=== PATIENT | female | born 1945 | race Caucasian/White ===

== ENCOUNTER 2016-09-22 19:20 | Inpatient (IN) | payer MEDICARE, BC ==
[2016-09-22] MEDS ORDERED: Albuterol/Ipratropium 3.0-0.5 MG/3 ML Neb Soln NEB ONE (19:35)
[2016-09-22] MEDS ORDERED: Sodium Chloride 0.9% 10 ML Syringe FLUSH PRN (19:36)
[2016-09-22] MEDS ORDERED: Sodium Chloride 0.9% 2.5 ML Syringe FLUSH PRN (19:36)
[2016-09-22] MEDS ORDERED: Sodium Chloride 0.9% 1,000 ML IV ONE (19:36)
--- NOTE | 2016-09-22 19:41 | EDM.PDOC ---
ED HPI GENERAL MEDICAL PROBLEM - General Chief Complaint: Respiratory Problem Stated Complaint: PT COUGHING UP BLOOD AND WEAK Time Seen by Provider: 09/22/16 19:23 - History of Present Illness INITIAL COMMENTS - FREE TEXT/NARRATIVE: HISTORY AND PHYSICAL: History of present illness: The patient is a complicated 71-year-old female who lives in [place] and is traveling in the area on a summer trip and presents with complaints of coughing bright red blood that started this morning. 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 She has chronic problems as a result of those events since that time and has had aspiration pneumonia multiple times. She is currently on clindamycin continuously for the last one year to attempt to prevent recurrence of pneumonia. She also has a history of A. fib with a pacemaker and currently takes digoxin and Eliquis. She also has COPD and sleep apnea for which she uses C Pap at night and hypothyroidism. She follows with physicians in [place]. The patient states that when she coughs of blood she usually has aspiration pneumonia which is what she is concerned about. She does not feel like she has any tightness in her neck and has no chest pain per se except with a cough. She is not short of breath at rest but with activities she is getting breathless over the last 12-18 hours. She says that she coughs up blood every morning due to her C Pap but it is usually dark in color not bright red. She does feel weak which is generalized and not focal to any one extremity and she had an episode of dizziness/lightheadedness earlier today but did not pass out. She has not had her head and has no head neck or back pain. She has no abdominal complaints no vomiting and no diarrhea. She also feels that she has been dehydrated and she has not been taking much fluid in and feels weak because of that as well. She is not having any blood in her stools but she does have bleeding in her mouth due to the chronic dryness she has since her neck surgery 12 days ago. The patient says that salivary glands were affected after the surgery 12 years ago with the radiation and she has chronically dry oral mucosa which does bleed intermittently. She says that when she coughs and there is blood(different than her usual baseline. Review of systems: As per history of present illness and below otherwise all systems reviewed and negative. Past medical history: As per history of present illness and as reviewed below otherwise noncontributory. Surgical history: As per history of present illness and as reviewed below otherwise noncontributory. Social history: No reported history of drug or alcohol abuse. Family history: As per history of present illness and as reviewed below otherwise noncontributory. Physical exam: Gen.: Well-developed thin female who is nontoxic and speaks very softly and vital signs have been noted by me. HEENT: Atraumatic, normocephalic, pupils reactive, negative for scleral icterus , conjunctiva are slightly pale, mucous membranes very dry which is the patient' s baseline per her testimony, throat clear of exudates but there is scant bright red blood seen on the tongue, there is chronic changes on the left side of her neck due to surgery and radiation, neck supple, nontender, trachea midline. There is no stridor appreciated on auscultation and in speaking with the patient voices not muffled Lungs: Clear to auscultation with scattered coarse breath sounds bilaterally but no wheezing and no worker breathing,, breath sounds equal bilaterally, chest nontender. Pacemaker is appreciated at the right upper chest wall area Heart: S1S2, regular, negative for clicks, rubs, or JVD. Abdomen: Soft, nondistended, bowel sounds are hypoactive and there is some mild tenderness in the left upper abdomen area without rebound or guarding Negative for masses or hepatosplenomegaly. Negative for costovertebral tenderness. Pelvis: Stable nontender. Genitourinary: Deferred. Rectal: Deferred. Extremities: Atraumatic, negative for cords or calf pain. Neurovascular unremarkable. No pedal edema Neuro: Awake, alert, oriented. Cranial nerves II through XII unremarkable. Cerebellum unremarkable. Motor and sensory unremarkable throughout. Exam nonfocal. Skin: No rashes or lesions are seen turgor is slightly diminished and the patient has overall pallor appearance Diagnostics: EKG CBC CMP INR lactic acid digoxin level blood cultures 2 troponin one view chest x-ray CT scan of the neck chest abdomen and pelvis Type and screen Therapeutics: IV humidified oxygen monitor IV fluids duo neb 2200: Case was discussed with our hospitalist Dr. Skinner who agrees with admission for bilateral pneumonia and agrees with Zosyn for antibiotics. Patient has not coughed up any blood here in the ED and has been stable vital lomeli. We will plan to admit here. Patient and are comfortable with this care plan. Critical care time excluding procedures: 31min Impression: Bilateral pneumonia with Hemoptysis with history of neck cancer in remission, chronic aspiration pneumonia, A. fib with Eliquis use Definitive disposition and diagnosis as appropriate pending reevaluation and review of above. - Related Data Allergies Allergy/AdvReac Type Severity Reaction Status Date / Time codeine Allergy Vomiting Verified 09/22/16 19:36 Sulfa (Sulfonamide Allergy Hives Verified 09/22/16 19:36 Antibiotics) Home Meds: Home Meds Apixaban [Eliquis] 5 mg PO BID 09/22/16 [History] C-Pap 09/22/16 [History] Clindamycin HCl 150 mg PO DAILY 09/22/16 [History] Digoxin [Digitek] 125 mcg PO DAILY 09/22/16 [History] Esomeprazole [NexIUM] 40 mg PO BEDTIME 09/22/16 [History] Fexofenadine [Linda] 180 mg PO ASDIRECTED PRN 09/22/16 [History] Flecainide Acetate 50 mg PO BID 09/22/16 [History] Fludrocortisone [Florinef] 0.1 mg PO BIDMEALS 09/22/16 [History] Levalbuterol HCl 0.63 mg IH ASDIRECTED PRN 09/22/16 [History] Levothyroxine 137 mcg PO ACBREAKFAST 09/22/16 [History] Meclizine [Antivert] 25 mg PO ASDIRECTED PRN 09/22/16 [History] Midodrine 2.5 mg PO BID 09/22/16 [History] Nystatin 15 gm TP ASDIRECTED PRN 09/22/16 [History] Sertraline [Zoloft] 50 mg PO DAILY 09/22/16 [History] Solifenacin Succinate [Vesicare] 10 mg PO DAILY 09/22/16 [History] Tiotropium [Spiriva] 1 puff INH DAILY 09/22/16 [History] ED ROS GENERAL - Review of Systems Review Of Systems: ROS reveals no pertinent complaints other than HPI. ED EXAM, GENERAL - Physical Exam Exam: See Below (See dictation) Course - Vital Signs Last Recorded V/S: Last Vital Signs Temp 36.9 C 09/22/16 22:02 Pulse 72 09/22/16 22:02 Resp 14 09/22/16 22:02 BP 178/89 H 09/22/16 22:02 Pulse Ox 97 09/22/16 22:02 - Orders/Labs/Meds Orders: Active Orders 24 hr Category Date Time Status Patient Status [ADT] Stat ADT 09/22/16 22:10 Ordered Cardiac Monitoring [RC] . DIRECTED Care 09/22/16 19:35 Active Communication Order [RC] STAT Care 09/22/16 19:35 Active EKG Documentation Completion [RC] STAT Care 09/22/16 19:35 Active Oxygen Therapy, ED [RC] ASDIRECTED Care 09/22/16 19:35 Active Pulse Oximetry [RC] ASDIRECTED Care 09/22/16 19:35 Active RT Aerosol Therapy [RC] ASDIRECTED Care 09/22/16 19:36 Active Abdomen Pelvis w Cont [CT] Stat Exams 09/22/16 19:41 Taken Chest 1V Frontal [CR] Stat Exams 09/22/16 19:36 Taken Chest w Cont [CT] Stat Exams 09/22/16 19:36 Taken Soft Tissue Neck w Cont [CT] Stat Exams 09/22/16 19:38 Taken CULTURE BLOOD [BC] Stat Lab 09/22/16 19:49 Received CULTURE BLOOD [BC] Stat Lab 09/22/16 20:10 Received Piperacillin/Tazobactam [Piperacil-Tazobact] 3.375 gm Med 09/22/16 22:01 Active Sodium Chloride 0.9% [Normal Saline] 50 ml IV ONETIME Sodium Chloride 0.9% [Saline Flush] Med 09/22/16 19:36 Active 10 ml FLUSH ASDIRECTED PRN Sodium Chloride 0.9% [Saline Flush] Med 09/22/16 19:36 Active 2.5 ml FLUSH ASDIRECTED PRN Blood Culture x2 Reflex Set [OM.PC] Stat Oth 09/22/16 19:36 Ordered Saline Lock Insert [OM.PC] Stat Oth 09/22/16 19:35 Ordered Medication Orders Piperacillin Sod/Tazobactam (Sod 3.375 gm/ Sodium Chloride) 50 mls @ 100 mls/ hr IV ONETIME ONE Stop: 09/22/16 22:30 Sodium Chloride (Saline Flush) 10 ml FLUSH ASDIRECTED PRN PRN Reason: Keep Vein Open Sodium Chloride (Saline Flush) 2.5 ml FLUSH ASDIRECTED PRN PRN Reason: Keep Vein Open Labs: Laboratory Tests 09/22/16 09/22/16 09/22/16 Range/Units 19:49 19:49 19:49 WBC 11.07 H (4.0-11.0) K/uL RBC 3.85 L (4.30-5.90) M/uL Hgb 9.1 L (12.0-16.0) g/dL Hct 28.9 L (36.0-46.0) % MCV 75.1 L (80.0-98.0) fL MCH 23.6 L (27.0-32.0) pg MCHC 31.5 (31.0-37.0) g/dL RDW Std Deviation 50.8 (28.0-62.0) fl RDW Coeff of Jacobo 19 H (11.0-15.0) % Plt Count 212 (150-400) K/uL MPV 8.60 (7.40-12.00) fL Neut % (Auto) 77.6 (48.0-80.0) % Lymph % (Auto) 15.8 L (16.0-40.0) % Burnet % (Auto) 5.8 (0.0-15.0) % Eos % (Auto) 0.5 (0.0-7.0) % Baso % (Auto) 0.3 (0.0-1.5) % Neut # (Auto) 8.6 H (1.4-5.7) K/uL Lymph # (Auto) 1.8 (0.6-2.4) K/uL Burnet # (Auto) 0.6 (0.0-0.8) K/uL Eos # (Auto) 0.1 (0.0-0.7) K/uL Baso # (Auto) 0.0 (0.0-0.1) K/uL Nucleated RBC % 0.0 /100WBC Nucleated RBCs # 0 K/uL INR 1.10 (0.86-1.11) Lactate 1.3 (0.20-2.00) mmol/L Sodium (136-146) mmol/L Potassium (3.5-5.1) mmol/L Chloride (98-110) mmol/L Carbon Dioxide (21-31) mmol/L BUN (6.0-23.0) mg/dL Creatinine (0.6-1.5) mg/dL Est Cr Clr Drug Dosing mL/min Estimated GFR (MDRD) ml/min Glucose (60-110) mg/dL Calcium (8.8-10.8) mg/dL Total Bilirubin (0.1-1.5) mg/dL AST (5-40) IU/L ALT (8-54) IU/L Alkaline Phosphatase (40-150) Troponin I (0.0-0.29) NG/ML Total Protein (6.0-8.0) g/dL Albumin (3.4-4.8) g/dL Globulin (2.0-3.5) g/dL Albumin/Globulin Ratio (1.3-2.8) Digoxin (0.8-2.0) ng/mL Blood Type Antibody Screen 09/22/16 09/22/16 09/22/16 Range/Units 19:49 19:49 19:49 WBC (4.0-11.0) K/uL RBC (4.30-5.90) M/uL Hgb (12.0-16.0) g/dL Hct (36.0-46.0) % MCV (80.0-98.0) fL MCH (27.0-32.0) pg MCHC (31.0-37.0) g/dL RDW Std Deviation (28.0-62.0) fl RDW Coeff of Jacobo (11.0-15.0) % Plt Count (150-400) K/uL MPV (7.40-12.00) fL Neut % (Auto) (48.0-80.0) % Lymph % (Auto) (16.0-40.0) % Burnet % (Auto) (0.0-15.0) % Eos % (Auto) (0.0-7.0) % Baso % (Auto) (0.0-1.5) % Neut # (Auto) (1.4-5.7) K/uL Lymph # (Auto) (0.6-2.4) K/uL Burnet # (Auto) (0.0-0.8) K/uL Eos # (Auto) (0.0-0.7) K/uL Baso # (Auto) (0.0-0.1) K/uL Nucleated RBC % /100WBC Nucleated RBCs # K/uL INR (0.86-1.11) Lactate (0.20-2.00) mmol/L Sodium 141 (136-146) mmol/L Potassium 4.0 (3.5-5.1) mmol/L Chloride 105 (98-110) mmol/L Carbon Dioxide 24 (21-31) mmol/L BUN 16 (6.0-23.0) mg/dL Creatinine 0.9 (0.6-1.5) mg/dL Est Cr Clr Drug Dosing 68.08 mL/min Estimated GFR (MDRD) > 60.0 ml/min Glucose 82 (60-110) mg/dL Calcium 9.2 (8.8-10.8) mg/dL Total Bilirubin 1.2 (0.1-1.5) mg/dL AST 12 (5-40) IU/L ALT 10 (8-54) IU/L Alkaline Phosphatase 54 (40-150) Troponin I < 0.10 (0.0-0.29) NG/ML Total Protein 6.6 (6.0-8.0) g/dL Albumin 3.6 (3.4-4.8) g/dL Globulin 3.0 (2.0-3.5) g/dL Albumin/Globulin Ratio 1.2 L (1.3-2.8) Digoxin 0.94 (0.8-2.0) ng/mL Blood Type A POSITIVE Antibody Screen NEGATIVE Meds: Medications Generic Name Dose Route Start Last Admin Trade Name Freq PRN Reason Stop Dose Admin Piperacillin Sod/Tazobactam 50 mls @ 100 mls/hr 09/22/16 22:01 Sod 3.375 gm/ Sodium Chloride IV 09/22/16 22:30 ONETIME ONE Sodium Chloride 10 ml 09/22/16 19:36 Saline Flush FLUSH ASDIRECTED PRN Keep Vein Open Sodium Chloride 2.5 ml 09/22/16 19:36 Saline Flush FLUSH ASDIRECTED PRN Keep Vein Open Discontinued Medications Generic Name Dose Route Start Last Admin Trade Name Freq PRN Reason Stop Dose Admin Albuterol/Ipratropium 3 ml 09/22/16 19:35 09/22/16 19:51 Duoneb 3.0-0.5 Mg/3 Ml NEB 09/22/16 19:36 3 ml ONETIME ONE Administration Sodium Chloride 1,000 mls @ 999 mls/hr 09/22/16 19:36 09/22/16 20:20 Normal Saline IV 09/22/16 20:36 999 mls/hr STAT ONE Administration Iopamidol 100 ml 09/22/16 19:51 09/22/16 20:00 Isovue Multipack-370 (76%) IVPUSH 09/22/16 19:52 100 ml ONETIME STA Administration Departure - Departure Time of Disposition: 22:12 Disposition: Admitted As Inpatient 68 Condition: Good Clinical Impression: Hemoptysis Pneumonia Qualifiers: Pneumonia type: due to unspecified organism Laterality: bilateral Lung location : unspecified part of lung Qualified Code(s): J18.9 - Pneumonia, unspecified organism - Discharge Information Forms: ED Department Discharge - My Orders Last 24 Hours: My Active Orders 09/22/16 19:35 Cardiac Monitoring [RC] . DIRECTED Communication Order [RC] STAT EKG Documentation Completion [RC] STAT Oxygen Therapy, ED [RC] ASDIRECTED Pulse Oximetry [RC] ASDIRECTED Saline Lock Insert [OM.PC] Stat 09/22/16 19:36 RT Aerosol Therapy [RC] ASDIRECTED Chest 1V Frontal [CR] Stat Chest w Cont [CT] Stat Sodium Chloride 0.9% [Saline Flush] 10 ml FLUSH ASDIRECTED PRN Sodium Chloride 0.9% [Saline Flush] 2.5 ml FLUSH ASDIRECTED PRN Blood Culture x2 Reflex Set [OM.PC] Stat 09/22/16 19:38 Soft Tissue Neck w Cont [CT] Stat 09/22/16 19:41 Abdomen Pelvis w Cont [CT] Stat 09/22/16 19:49 CULTURE BLOOD [BC] Stat 09/22/16 20:10 CULTURE BLOOD [BC] Stat 09/22/16 22:01 Piperacillin/Tazobactam [Piperacil-Tazobact] 3.375 gm Sodium Chloride 0.9% [ Normal Saline] 50 ml IV ONETIME 09/22/16 22:10 Patient Status [ADT] Stat - Assessment/Plan Last 24 Hours: My Active Orders 09/22/16 19:35 Cardiac Monitoring [RC] . DIRECTED Communication Order [RC] STAT EKG Documentation Completion [RC] STAT Oxygen Therapy, ED [RC] ASDIRECTED Pulse Oximetry [RC] ASDIRECTED Saline Lock Insert [OM.PC] Stat 09/22/16 19:36 RT Aerosol Therapy [RC] ASDIRECTED Chest 1V Frontal [CR] Stat Chest w Cont [CT] Stat Sodium Chloride 0.9% [Saline Flush] 10 ml FLUSH ASDIRECTED PRN Sodium Chloride 0.9% [Saline Flush] 2.5 ml FLUSH ASDIRECTED PRN Blood Culture x2 Reflex Set [OM.PC] Stat 09/22/16 19:38 Soft Tissue Neck w Cont [CT] Stat 09/22/16 19:41 Abdomen Pelvis w Cont [CT] Stat 09/22/16 19:49 CULTURE BLOOD [BC] Stat 09/22/16 20:10 CULTURE BLOOD [BC] Stat 09/22/16 22:01 Piperacillin/Tazobactam [Piperacil-Tazobact] 3.375 gm Sodium Chloride 0.9% [ Normal Saline] 50 ml IV ONETIME 09/22/16 22:10 Patient Status [ADT] Stat
[2016-09-22] MEDS ORDERED: Iopamidol 755 MG/ML 500 ML Multipack Bottle IVPUSH STA (19:51)
[2016-09-22 20:29] LABS: CHLORIDE,CL 105 mmol/L (98-110); SODIUM,NA 141 mmol/L (136-146)
[2016-09-22] MEDS ORDERED: Piperacillin/Tazobactam 3.375 GM in Sodium Chloride 0.9% 50 ML IV ONE (22:01)
[2016-09-22] MEDS ORDERED: Azithromycin 500 MG in Sodium Chloride 0.9% 250 ML IV ONE (23:44)
[2016-09-22] MEDS ORDERED: Ondansetron 4 MG/2 ML SDV IVPUSH PRN (23:48)
[2016-09-23] MEDS: Flecainide 100 MG Tab PO SCH ×4 (01:46→20:31)
[2016-09-23] MEDS: Piperacillin/Tazobactam 3.375 GM in Sodium Chloride 0.9% 50 ML IV SCH ×4 (03:25→21:45)
[2016-09-23] MEDS ORDERED: Nystatin Crm 30 GM Tube TOP PRN (05:52)
[2016-09-23] MEDS ORDERED: Levalbuterol HCl 0.63 MG/3 ML Neb INH PRN (05:52)
[2016-09-23] MEDS ORDERED: Meclizine 25 MG Tab PO PRN (05:52)
[2016-09-23 05:53] LABS: CHLORIDE,CL 108 mmol/L (98-110); SODIUM,NA 142 mmol/L (136-146)
--- NOTE | 2016-09-23 08:40 | PCM.HP ---
H&P History of Present Illness - General Date of Service: 09/23/16 Admit Problem/Dx: Admission Diagnosis/Problem Admission Diagnosis/Problem Aspiration Pneumonia Source of Information: Patient History Limitations: Reports: No Limitations - History of Present Illness Initial Comments - Free Text/Narative: This is a 71 year old female with a past medical history of left sided neck cancer that was treated with radiation and dissection 12 years ago, A-fib on chronic anticoagulation, Eliquis, COPD, recurrent aspiration pneumonia due to radiation treatments, pacemaker, Tomy reflex syndrome, JONNA, and hypothyroidism. She presents to the ED for an episode of coughing up blood that was red mixed in with her sputum. She reports 2 days ago, feeling weak and clumsy and just is feeling dehydrated. She reported having a fever of 101.3 at home, with some chills. She denies chest pain, palpitations or SOB. She denied abdominal pain, urinary symptoms or diarrhea. She does suffer from some constipation chronically. Her and her are from [place] and they have been traveling in a RV for the last month. Due to dysphagia and recurrent aspiration pneumonia, her roll coating machine operator placed her on Clindamycin approximately 1 year ago to help prevent aspiration pneumonia. She has been told to limit meat and bread intake, which she has a hard time swallowing. Her appetite is poor and typically doesn't eat much due to dysphagia. She at this time is aiming at quality of life and doesn't want to restrict diet at this time and knows eventually she will be back to PEG tube feedings. In the ED, slight leukocytosis noted, 11,070, hgb 9.[address] of the chest revealed R upper, mid and lower lobe and L lower lobe opacities, question aspiration. Neck and abdominal CT negative for acute abnormalities. She was treated with Zosyn and 1 L bolus. She will be admitted for aspiration pneumonia. Improves with: Reports: None Worsens with: Reports: None Associated Symptoms: Reports: No Other Symptoms - Related Data Allergies/Adverse Reactions: Allergies Allergy/AdvReac Type Severity Reaction Status Date / Time codeine Allergy Vomiting Verified 09/22/16 19:36 Sulfa (Sulfonamide Allergy Hives Verified 09/22/16 19:36 Antibiotics) Home Medications: Home Meds Apixaban [Eliquis] 5 mg PO BID 09/22/16 [History] Clindamycin HCl 150 mg PO DAILY 09/22/16 [History] Digoxin [Digitek] 125 mcg PO DAILY 09/22/16 [History] Esomeprazole [NexIUM] 40 mg PO ACBREAKFAST 09/22/16 [History] Fexofenadine [Linda] 180 mg PO ASDIRECTED PRN 09/22/16 [History] Flecainide Acetate 50 mg PO BID 09/22/16 [History] Fludrocortisone [Florinef] 0.1 mg PO BIDMEALS 09/22/16 [History] Levalbuterol HCl 0.63 mg IH ASDIRECTED PRN 09/22/16 [History] Levothyroxine 137 mcg PO ACBREAKFAST 09/22/16 [History] Meclizine [Antivert] 25 mg PO ASDIRECTED PRN 09/22/16 [History] Midodrine 2.5 mg PO BID 09/22/16 [History] Nystatin 15 gm TP ASDIRECTED PRN 09/22/16 [History] Sertraline [Zoloft] 50 mg PO DAILY 09/22/16 [History] Solifenacin Succinate [Vesicare] 10 mg PO DAILY 09/22/16 [History] Tiotropium [Spiriva] 18 mcg INH DAILY 09/22/16 [History] Past Medical History HEENT History: Reports: Other (See Below) (Left side neck cancer with radiation and dissection 12 years ago) Cardiovascular History: Reports: Afib, Pacemaker, Other (See Below) (Tomy reflex syndrome). Denies: Hypertension Respiratory History: Reports: COPD, Pneumonia, Recurrent (Reccurent aspiration pneumonia), Other (See Below) Endocrine/Metabolic History: Reports: Hypothyroidism. Denies: Diabetes, Type II - Infectious Disease History Infectious Disease History: Reports: Other (See Below) Other Infectious Disease History: staph infections - Past Surgical History Cardiovascular Surgical History: Reports: None Social & Family History - Family History Family Medical History: Noncontributory - Tobacco Use Smoking Status *Q: Former Smoker Used Tobacco, but Quit: Yes Month Tobacco Last Used: 50 years ago Second Hand Smoke Exposure: No - Caffeine Use Caffeine Use: Reports: Coffee - Alcohol Use Alcohol Use Frequency: Socially - Recreational Drug Use Recreational Drug Use: No - Living Situation & Occupation Living situation: Reports: Occupation: Retired H&P Review of Systems - Review of Systems: Review Of Systems: See Below General: Reports: Malaise, Fatigue, Decreased Appetite. Denies: Fever, Chills HEENT: Reports: Dysphasia, Headaches. Denies: Sore Throat Pulmonary: Reports: Cough, Hemoptysis. Denies: Shortness of Breath, Wheezing, Pleuritic Chest Pain Cardiovascular: Reports: No Symptoms, Other (wears compression stockings ). Denies: Chest Pain, Palpitations, Dyspnea on Exertion Gastrointestinal: Reports: Decreased Appetite, Difficulty Swallowing, Nausea, Other (Patient states since the neck cancer, she has had problems swallowing and has had her esophagus stretched 3 times in the past. She states she has been told that she should thicken her liquids, but patient states she does not follow the recommendations. ). Denies: Black Stool, Bloody Stool Genitourinary: Reports: No Symptoms. Denies: Dysuria, Frequency, Burning, Pain , Urgency, Hematuria Musculoskeletal: Reports: No Symptoms Skin: Denies: Bruising, Change in Color Psychiatric: Reports: No Symptoms Neurological: Reports: Headache, Syncope (patient states 2 nights ago she had a " passing out" episode. She states this is due to her tomy reflex syndrome ). Denies: Confusion, Dizziness, Seizure, Difficulty Walking, Weakness Hematologic/Lymphatic: Reports: No Symptoms. Denies: Anemia, Easy Bleeding, Swollen Glands Exam - Exam Exam: See Below - Vital Signs Vital Signs: Last Vital Signs Temp 99.5 F 09/23/16 08:00 Pulse 74 09/23/16 08:00 Resp 20 09/23/16 08:00 BP 146/76 H 09/23/16 08:00 Pulse Ox 95 09/23/16 08:00 Weight: 75.931 kg - Exam General: Alert, Oriented, Cooperative HEENT: Hearing Intact, Mucosa Moist & [place], Pupils Equal, Pupils Reactive Neck: Supple, Trachea Midline Lungs: Normal Respiratory Effort, Rhonchi, Other (rhonchi in right upper, middle , & lower and rhonchi in left lower lobe) Cardiovascular: Regular Rate, Regular Rhythm, Normal S1, Normal S2 GI/Abdominal Exam: Normal Bowel Sounds, Soft, Non-Tender, No Organomegaly, No Distention, Pelvis Stable (Female) Exam: Deferred Rectal (Female) Exam: Deferred Back Exam: Normal Inspection, Full Range of Motion Extremities: Normal Inspection, Normal Range of Motion, Non-Tender, No Pedal Edema, Normal Capillary Refill Peripheral Pulses: 2+: Dorsalis Pedis (L), Dorsalis Pedis (R) Skin: Warm, Dry, Intact Neurological: Normal Speech, Normal Tone Neuro Extensive - Mental Status: Alert, Oriented x3, Normal Mood/Affect, Normal Cognition, Memory Intact Psychiatric: Alert, Normal Affect, Normal Mood - Patient Data Lab Results Last 24 hrs: Laboratory Results - last 24 hr 09/23/16 09/23/16 Range/Units 04:48 04:48 WBC 10.28 (4.0-11.0) K/uL RBC 3.57 L (4.30-5.90) M/uL Hgb 8.4 L (12.0-16.0) g/dL Hct 27.1 L (36.0-46.0) % MCV 75.9 L (80.0-98.0) fL MCH 23.5 L (27.0-32.0) pg MCHC 31.0 (31.0-37.0) g/dL RDW Std Deviation 51.1 (28.0-62.0) fl RDW Coeff of Jacobo 19 H (11.0-15.0) % Plt Count 219 (150-400) K/uL MPV 9.50 (7.40-12.00) fL Neut % (Auto) 82.6 H (48.0-80.0) % Lymph % (Auto) 10.6 L (16.0-40.0) % [place] % (Auto) 5.8 (0.0-15.0) % Eos % (Auto) 0.6 (0.0-7.0) % Baso % (Auto) 0.4 (0.0-1.5) % Neut # (Auto) 8.5 H (1.4-5.7) K/uL Lymph # (Auto) 1.1 (0.6-2.4) K/uL [place] # (Auto) 0.6 (0.0-0.8) K/uL Eos # (Auto) 0.1 (0.0-0.7) K/uL Baso # (Auto) 0.0 (0.0-0.1) K/uL Nucleated RBC % 0.0 /100WBC Nucleated RBCs # 0 K/uL Sodium 142 (136-146) mmol/L Potassium 4.2 (3.5-5.1) mmol/L Chloride 108 (98-110) mmol/L Carbon Dioxide 27 (21-31) mmol/L BUN 14 (6.0-23.0) mg/dL Creatinine 0.8 (0.6-1.5) mg/dL Est Cr Clr Drug Dosing 76.70 mL/min Estimated GFR (MDRD) > 60.0 ml/min Glucose 85 (60-110) mg/dL Calcium 8.3 L (8.8-10.8) mg/dL Result Diagrams: 09/23/16 04:48 09/23/16 04:48 *Q Meaningful Use (ADM) - VTE *Q VTE Criteria *Q: - Stroke *Q Stroke Criteria *Q: - AMI *Q AMI Criteria *Q: - Problem List (1) Aspiration pneumonia SNOMED Code(s): 547994169 ICD Code: J69.0 - PNEUMONITIS DUE TO INHALATION OF FOOD AND VOMIT Status: Acute Current Visit: Yes Qualifiers: Laterality: bilateral (2) Hemoptysis SNOMED Code(s): 78849024 ICD Code: R04.2 - HEMOPTYSIS Status: Acute Current Visit: Yes (3) Afib SNOMED Code(s): 32587247 ICD Code: I48.91 - UNSPECIFIED ATRIAL FIBRILLATION Status: Chronic Current Visit: Yes (4) Anemia SNOMED Code(s): 895665129 ICD Code: D64.9 - ANEMIA, UNSPECIFIED Status: Chronic Current Visit: Yes Qualifiers: Anemia type: iron deficiency Iron deficiency anemia type: inadequate dietary iron intake Qualified Code(s): D50.8 - Other iron deficiency anemias (5) Dysphagia SNOMED Code(s): 95472933, 768853531 ICD Code: R13.10 - DYSPHAGIA, UNSPECIFIED Status: Chronic Current Visit: Yes Qualifiers: Dysphagia type: unspecified Qualified Code(s): R13.10 - Dysphagia, unspecified (6) Malnutrition SNOMED Code(s): 5279296 ICD Code: E46 - UNSPECIFIED PROTEIN-CALORIE MALNUTRITION Status: Chronic Current Visit: Yes (7) JONNA (obstructive sleep apnea) SNOMED Code(s): 55089245 ICD Code: G47.33 - OBSTRUCTIVE SLEEP APNEA (ADULT) (PEDIATRIC) Status: Chronic Current Visit: Yes (8) COPD (chronic obstructive pulmonary disease) SNOMED Code(s): 50481008 ICD Code: J44.9 - CHRONIC OBSTRUCTIVE PULMONARY DISEASE, UNSPECIFIED Status : Chronic Current Visit: Yes Qualifiers: COPD type: chronic bronchitis (9) Pacemaker SNOMED Code(s): 560763909, 812823437 ICD Code: Z95.0 - PRESENCE OF CARDIAC PACEMAKER Status: Chronic Current Visit: Yes (10) Hypothyroid SNOMED Code(s): 85888389 ICD Code: E03.9 - HYPOTHYROIDISM, UNSPECIFIED Status: Chronic Current Visit: Yes (11) History of head or neck cancer SNOMED Code(s): 548769011 ICD Code: Z85.89 - PERSONAL HISTORY OF MALIGNANT NEOPLASM OF ORGANS AND SYSTEMS Status: Chronic Current Visit: Yes (12) Hx of head and neck radiation SNOMED Code(s): 852864502 ICD Code: Z92.3 - PERSONAL HISTORY OF IRRADIATION Status: Chronic Current Visit: Yes Problem List Initiated/Reviewed/Updated: Yes Orders Last 24hrs: Active Orders 24 hr Category Date Time Status Communication Order [RC] DAILY Care 09/23/16 00:30 Active Regular Diet [DIET] Diet 09/23/16 Breakfast Active CULTURE SPUTUM + SMEAR [RM] Routine Lab 09/22/16 23:48 Uncollected Apixaban [Eliquis] Med 09/23/16 09:00 Active 5 mg PO BID Digoxin [Lanoxin] Med 09/23/16 09:00 Active 125 mcg PO DAILY Esomeprazole Med 09/23/16 21:00 Active 40 mg PO BEDTIME Fexofenadine [Linda] Med 09/23/16 05:52 Active 180 mg PO DAILY PRN Flecainide [Tambocor] Med 09/23/16 01:15 Active 50 mg PO BID Fludrocortisone [Florinef] Med 09/23/16 08:00 Active 0.1 mg PO BIDMEALS Levalbuterol HCl [Xopenex] Med 09/23/16 05:52 Active 0.63 mg INH Q4H PRN Levothyroxine Med 09/23/16 07:30 Active 112 mcg PO ACBREAKFAST Levothyroxine Med 09/23/16 07:30 Active 25 mcg PO ACBREAKFAST Meclizine [Antivert] Med 09/23/16 05:52 Active 25 mg PO Q8H PRN Midodrine Med 09/23/16 09:00 Active 2.5 mg PO BID Nystatin [Nystatin Crm] Med 09/23/16 05:52 Active 0 gm TOP BID PRN Ondansetron [Zofran] Med 09/22/16 23:48 Active 4 mg IVPUSH Q4H PRN Piperacillin/Tazobactam [Piperacil-Tazobact] 3.375 gm Med 09/23/16 04:00 Active Sodium Chloride 0.9% [Normal Saline] 50 ml IV Q6H Sertraline [Zoloft] Med 09/23/16 09:00 Active 50 mg PO DAILY Solifenacin Succinate [Vesicare] Med 09/23/16 09:00 Active 10 mg PO DAILY Tiotropium [Spiriva HandiHaler] Med 09/23/16 09:00 Active 1 mcg INH DAILY Medication Orders Apixaban (Eliquis) [address] [facility] Digoxin (Lanoxin) [address] [facility] Fexofenadine HCl (Linda) 180 mg PO DAILY PRN PRN Reason: allergies Flecainide Acetate (Tambocor) [address] [facility] Last Admin: 09/23/16 02:10 Dose: Not Given Fludrocortisone Acetate (Florinef) 0.[address] [facility] Piperacillin Sod/Tazobactam (Sod 3.375 gm/ Sodium Chloride) 50 mls @ 100 mls/ hr IV Q6H [facility] Last Admin: 09/23/16 03:25 Dose: 100 mls/hr Levalbuterol HCl (Xopenex) 0.63 mg INH Q4H PRN PRN Reason: SHORTNESS OF BREATH Levothyroxine Sodium (Levothyroxine) [address] [facility] Levothyroxine Sodium (Levothyroxine) [address] [facility] Meclizine HCl (Antivert) 25 mg PO Q8H PRN PRN Reason: DIZZINESS Midodrine (Midodrine) 2.[address] [facility] Esomeprazole 40 Mg (Pt Own) 40 mg PO BEDTIME [facility] Solifenacin Succinate [Vesicare] 10 MgPt Own [address] [facility] Nystatin (Nystatin Crm) 0 gm TOP BID PRN PRN Reason: rash Ondansetron HCl (Zofran) 4 mg IVPUSH Q4H PRN PRN Reason: Nausea/Vomiting Sertraline HCl (Zoloft) [address] [facility] Sodium Chloride (Saline Flush) 10 ml FLUSH ASDIRECTED PRN PRN Reason: Keep Vein Open Sodium Chloride (Saline Flush) 2.5 ml FLUSH ASDIRECTED PRN PRN Reason: Keep Vein Open Tiotropium [place] (Spiriva Handihaler) [address] [facility] Assessment/Plan Comment:: This 71 year old female admitted with aspiration Pneumonia 1. Aspiration pneumonia: Continue Zosyn. BC pending. Sputum pending. Encourage IS. Will monitor labs in AM. Oxygen prn 2. Anemia: Iron studies show iron deficiency anemia likely secondary to malnutrition. Will monitor hgb in am. Start Iron supplementation today. 3. Afib: Continue Anti-arrhythmics. Rate controlled. Will hold Eliquis at this time due to hemoptysis. Supplemented Magnesium 2 gm IV today. 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 Does appear dehydrated will place on NS 100 for now. Monitor closely. 5. Malnutrition: Supplement meals with Ensure/Boost. Monitor. 6. COPD: Continue Spiriva VTE prophylaxis: SCDs Dispo: 2-3 days
[2016-09-23] MEDS ORDERED: SOLIFENACIN SUCCINATE 10 MG PO SCH (09:00)
[2016-09-23] MEDS ORDERED: TIOTROPIUM 18 MCG INH SCH (09:00)
[2016-09-23] MEDS ORDERED: APIXABAN 5 MG PO SCH (09:00)
[2016-09-23] MEDS: Midodrine 5 MG Tab PO SCH ×2 (09:22→20:32)
[2016-09-23] MEDS: Levothyroxine 25 MCG Tab PO SCH (09:25)
[2016-09-23] MEDS: Levothyroxine 112 MCG Tab PO SCH (09:25)
[2016-09-23] MEDS: Digoxin 125 MCG Tab PO SCH (09:26)
[2016-09-23] MEDS: Fludrocortisone 0.1 MG Tab PO SCH ×2 (09:26→17:17)
[2016-09-23] MEDS: Sertraline 50 MG Tab PO SCH (09:30)
--- NOTE | 2016-09-23 09:42 | CR ---
EXAM DATE: 09/22/16 PATIENT'S AGE: 71 Patient: SEBASTIÁN WEST Facility: [place], [place] Site . Site : 1945 Study: XRay Chest [id number]/25/2017 8:34:46 PM Ordering Physician: Roya Farah Final Report: INDICATION: Cough and a live, history of chronic aspiration. TECHNIQUE: Chest radiograph 1 view COMPARISON: None FINDINGS: Single portable AP upright chest. Study somewhat limited due to motion artifact. Patchy opacification in the bilateral lower lung zones. Upper lung zones clear. Right subclavian pacemaker leads intact. Heart and mediastinal contours within normal limits. Lower cervical spine fusion hardware noted. No pleural effusion or pneumothorax. IMPRESSION: 1. Faint bilateral lower lung zone patchy opacities, consider bilateral lower lobe infiltrates or possible aspiration pneumonitis. Dictated by Juan Francisco Man MD @ 09/22/2016 8:49:10 PM Dictated by: Juan Francisco Man MD @ 09/22/2016 20:49:16 (Electronic Signature) Report S[facility] by Proxy. [facility]
[2016-09-23] MEDS ORDERED: Apixaban 5 MG Tab PO SCH (09:45)
--- NOTE | 2016-09-23 09:47 | CT ---
EXAM DATE: 09/22/16 PATIENT'S AGE: 71 Patient: SEBASTIÁN WEST Facility: [place], [place] Site . Site : 1945 Study: CT Chest [id number]/25/2017 9:26:50 PM Ordering Physician: Roya Farah Final Report: INDICATION: Pain and shortness of breath. History of head and neck cancer 12 years prior. History of aspiration. TECHNIQUE: CT chest was acquired with IV contrast. COMPARISON: None FINDINGS: Cardiovascular structures: Heart size is normal. Thoracic aorta and main pulmonary artery are normal in caliber. Mediastinum and robi: Paratracheal adenopathy measuring up to 12 millimeters Lungs: Bilateral airspace opacities involving the right upper and middle lobes and both lower lobes consistent with pneumonia Pleura and pericardium: No effusions. Chest wall and axilla: No mass or adenopathy. Bones: No significant findings. IMPRESSION: Bilateral airspace opacities involving the right upper and middle lobes and both lower lobes consistent with pneumonia and or aspiration. Findings discussed on 09/22/2016 at 9:[address] Pryor. Dictated by David Henry MD @ 09/22/2016 9:41:40 PM Dictated by: David Henry MD @ 09/22/2016 21:42:12 (Electronic Signature) Report Signed by Proxy. [facility]
--- NOTE | 2016-09-23 09:48 | CT ---
EXAM DATE: 09/22/16 PATIENT'S AGE: 71 Patient: SEBASTIÁN WEST Facility: [place], [place] Site . Site : 1945 Study: CT Abdomen/Pelvis [id number]/25/2017 9:27:23 PM Ordering Physician: Roya Farah Final Report: INDICATION: Pain with palpation. History of aspiration TECHNIQUE: CT abdomen and pelvis acquired with IV contrast. COMPARISON: None FINDINGS: Lower chest: Right middle lobe and bilateral lower lobe airspace opacities consistent with pneumonia and or aspiration. Liver: Unremarkable. Spleen: Unremarkable. Pancreas: Unremarkable. Gallbladder and bile ducts: Status post cholecystectomy. Kidneys: Unremarkable. Adrenal glands: Unremarkable. GI tract: Diffuse colonic fecal retention. Sigmoid diverticulosis Appendix is visualized. Vascular structures: Unremarkable. Lymph nodes: Unremarkable. Miscellaneous: Unremarkable. No free air or significant free fluid. Pelvic Organs: Unremarkable. Bones: Unremarkable for age. IMPRESSION: Right middle and bilateral lower lobe airspace opacities consistent with pneumonia and/ or aspiration. Diffuse colonic fecal retention. Sigmoid diverticulosis. The appendix is not visualized. Findings discussed on 09/22/2016 at 9:[address] Pryor. Dictated by David Henry MD @ 09/22/2016 9:57:36 PM Dictated by: David Henry MD @ 09/22/2016 21:57:43 (Electronic Signature) Report Signed by Proxy. [facility]
--- NOTE | 2016-09-23 09:49 | CT ---
EXAM DATE: 09/22/16 PATIENT'S AGE: 71 Patient: SEBASTIÁN WEST Facility: [place], [place] Site . Site : 1945 Study: CT ST Neck [id number]/25/2017 9:32:28 PM Ordering Physician: Roya Farah Final Report: INDICATION: Shortness of breath, history of neck surgery for head and neck cancer TECHNIQUE: CT soft tissue of the neck was acquired with IV contrast. COMPARISON: None FINDINGS: Skull base: Unremarkable. Pharynx: Unremarkable. Larynx and trachea: Unremarkable. Salivary glands: Unremarkable. Thyroid gland: Unremarkable. Vessels: Unremarkable for age. Bones: Anterior spinal fixation however C6-C7. Misc: 11 millimeter probable lymph node inferior to the digastric muscles Evidence of prior left neck dissection. IMPRESSION: Evidence of prior left-sided neck dissection. Grossly patent airway. Findings discussed on 09/22/2016 at 9:[address] Pryor. Dictated by David Henry MD @ 09/22/2016 9:50:16 PM Dictated by: David Henry MD @ 09/22/2016 21:50:29 (Electronic Signature) Report Signed by Proxy. [facility]
[2016-09-23] MEDS: OMEPRAZOLE 20 MG PO SCH (10:09)
[2016-09-23] MEDS: Sodium Chloride 0.9% 1,000 ML IV SCH ×2 (10:18→21:44)
[2016-09-23] MEDS ORDERED: Magnesium Sulfate/Water 2 GM in Premix Bag 1 BAG IV ONE (13:05)
[2016-09-24] MEDS: Piperacillin/Tazobactam 3.375 GM in Sodium Chloride 0.9% 50 ML IV SCH ×4 (03:02→21:20)
[2016-09-24 05:47] LABS: CHLORIDE,CL 110 mmol/L (98-110); SODIUM,NA 143 mmol/L (136-146)
[2016-09-24] MEDS: Levothyroxine 25 MCG Tab PO SCH (06:36)
[2016-09-24] MEDS: OMEPRAZOLE 20 MG PO SCH (06:36)
[2016-09-24] MEDS: Levothyroxine 112 MCG Tab PO SCH (06:36)
[2016-09-24] MEDS: Tiotropium Inhaler 18 MCG Inhalation Powder Cap INH SCH (07:03)
[2016-09-24] MEDS: Midodrine 5 MG Tab PO SCH ×2 (08:01→16:03)
[2016-09-24] MEDS: Flecainide 100 MG Tab PO SCH ×2 (08:01→21:19)
[2016-09-24] MEDS: Fludrocortisone 0.1 MG Tab PO SCH ×2 (08:01→16:45)
[2016-09-24] MEDS: Sertraline 50 MG Tab PO SCH (08:01)
[2016-09-24] MEDS: Iron Polysaccharides Complex 150 MG Cap PO SCH (08:01)
[2016-09-24] MEDS: Digoxin 125 MCG Tab PO SCH (08:02)
--- NOTE | 2016-09-24 08:10 | PCM.PN ---
- General Info Date of Service: 09/24/16 Admission Dx/Problem (Free Text): Admission Diagnosis/Problem Admission Diagnosis/Problem Aspiration Pneumonia Subjective Update: Patient feeling better this morning, tired. Feels more hydrated. Denies chest pain or palpitations. Continues to have cough, did have blood streaked sputum when assessing patient Functional Status: Reports: Pain Controlled - Review of Systems General: Reports: No Symptoms HEENT: Reports: No Symptoms Pulmonary: Reports: Cough, Sputum, Hemoptysis. Denies: Shortness of Breath Cardiovascular: Reports: No Symptoms. Denies: Chest Pain, Edema Gastrointestinal: Reports: No Symptoms. Denies: Abdominal Pain, Nausea, Vomiting Genitourinary: Reports: No Symptoms Musculoskeletal: Reports: No Symptoms Skin: Reports: No Symptoms Neurological: Reports: No Symptoms Psychiatric: Reports: No Symptoms - Patient Data Vitals - Most Recent: Last Vital Signs Temp 99.3 F 09/24/16 07:45 Pulse 75 09/24/16 08:02 Resp 16 09/24/16 07:45 BP 159/101 H 09/24/16 07:45 Pulse Ox 92 L 09/24/16 07:45 Weight - Most Recent: 75.931 kg I&O - Last 24 Hours: Intake & Output 09/23/16 09/24/16 09/24/16 22:59 06:59 14:59 Intake Total 1618 150 Output Total 400 Balance 1618 -250 Lab Results Last 24 Hours: Laboratory Results - last 24 hr 09/23/16 09/23/16 09/23/16 Range/Units 04:48 04:48 04:48 WBC 10.28 (4.0-11.0) K/uL RBC 3.57 L (4.30-5.90) M/uL Hgb 8.4 L (12.0-16.0) g/dL Hct 27.1 L (36.0-46.0) % MCV 75.9 L (80.0-98.0) fL MCH 23.5 L (27.0-32.0) pg MCHC 31.0 (31.0-37.0) g/dL RDW Std Deviation 51.1 (28.0-62.0) fl RDW Coeff of Jacobo 19 H (11.0-15.0) % Plt Count 219 (150-400) K/uL MPV 9.50 (7.40-12.00) fL Neut % (Auto) 82.6 H (48.0-80.0) % Lymph % (Auto) 10.6 L (16.0-40.0) % [place] % (Auto) 5.8 (0.0-15.0) % Eos % (Auto) 0.6 (0.0-7.0) % Baso % (Auto) 0.4 (0.0-1.5) % Neut # (Auto) 8.5 H (1.4-5.7) K/uL Lymph # (Auto) 1.1 (0.6-2.4) K/uL [place] # (Auto) 0.6 (0.0-0.8) K/uL Eos # (Auto) 0.1 (0.0-0.7) K/uL Baso # (Auto) 0.0 (0.0-0.1) K/uL Nucleated RBC % 0.0 /100WBC Nucleated RBCs # 0 K/uL Absolute Retic 35.40 (20-80) K/uL Percent Retic 1.0 (0.5-1.5) % Immature Retic Fraction 20 % Sodium (136-146) mmol/L Potassium (3.5-5.1) mmol/L Chloride (98-110) mmol/L Carbon Dioxide (21-31) mmol/L BUN (6.0-23.0) mg/dL Creatinine (0.6-1.5) mg/dL Est Cr Clr Drug Dosing mL/min Estimated GFR (MDRD) ml/min Glucose (60-110) mg/dL Calcium (8.8-10.8) mg/dL Magnesium 1.5 (1.5-2.3) mEq/L Iron 10 L (50-170) ug/dL TIBC 315 (273-456) ug/dL % Saturation 3.17 L (20-55) % Transferrin 221 (200-400) ug/dL Ferritin (11-307) ng/mL Vitamin B12 (200-1100) PG/ML Folate (7.2-15.4) ng/mL 09/23/16 09/23/16 09/24/16 Range/Units 04:48 04:48 04:36 WBC 7.49 (4.0-11.0) K/uL RBC 3.54 L (4.30-5.90) M/uL Hgb 8.5 L (12.0-16.0) g/dL Hct 26.9 L (36.0-46.0) % MCV 76.0 L (80.0-98.0) fL MCH 24.0 L (27.0-32.0) pg MCHC 31.6 (31.0-37.0) g/dL RDW Std Deviation 52.3 (28.0-62.0) fl RDW Coeff of Jacobo 19 H (11.0-15.0) % Plt Count 219 (150-400) K/uL MPV 9.30 (7.40-12.00) fL Neut % (Auto) 73.6 (48.0-80.0) % Lymph % (Auto) 16.0 (16.0-40.0) % [place] % (Auto) 8.4 (0.0-15.0) % Eos % (Auto) 1.7 (0.0-7.0) % Baso % (Auto) 0.3 (0.0-1.5) % Neut # (Auto) 5.5 (1.4-5.7) K/uL Lymph # (Auto) 1.2 (0.6-2.4) K/uL [place] # (Auto) 0.6 (0.0-0.8) K/uL Eos # (Auto) 0.1 (0.0-0.7) K/uL Baso # (Auto) 0.0 (0.0-0.1) K/uL Nucleated RBC % 0.0 /100WBC Nucleated RBCs # 0 K/uL Absolute Retic (20-80) K/uL Percent Retic (0.5-1.5) % Immature Retic Fraction % Sodium (136-146) mmol/L Potassium (3.5-5.1) mmol/L Chloride (98-110) mmol/L Carbon Dioxide (21-31) mmol/L BUN (6.0-23.0) mg/dL Creatinine (0.6-1.5) mg/dL Est Cr Clr Drug Dosing mL/min Estimated GFR (MDRD) ml/min Glucose (60-110) mg/dL Calcium (8.8-10.8) mg/dL Magnesium (1.5-2.3) mEq/L Iron (50-170) ug/dL TIBC (273-456) ug/dL % Saturation (20-55) % Transferrin (200-400) ug/dL Ferritin 43 (11-307) ng/mL Vitamin B12 244 (200-1100) PG/ML Folate 11.3 (7.2-15.4) ng/mL 09/24/16 Range/Units 04:36 WBC (4.0-11.0) K/uL RBC (4.30-5.90) M/uL Hgb (12.0-16.0) g/dL Hct (36.0-46.0) % MCV (80.0-98.0) fL MCH (27.0-32.0) pg MCHC (31.0-37.0) g/dL RDW Std Deviation (28.0-62.0) fl RDW Coeff of Jacobo (11.0-15.0) % Plt Count (150-400) K/uL MPV (7.40-12.00) fL Neut % (Auto) (48.0-80.0) % Lymph % (Auto) (16.0-40.0) % [place] % (Auto) (0.0-15.0) % Eos % (Auto) (0.0-7.0) % Baso % (Auto) (0.0-1.5) % Neut # (Auto) (1.4-5.7) K/uL Lymph # (Auto) (0.6-2.4) K/uL [place] # (Auto) (0.0-0.8) K/uL Eos # (Auto) (0.0-0.7) K/uL Baso # (Auto) (0.0-0.1) K/uL Nucleated RBC % /100WBC Nucleated RBCs # K/uL Absolute Retic (20-80) K/uL Percent Retic (0.5-1.5) % Immature Retic Fraction % Sodium 143 (136-146) mmol/L Potassium 4.2 (3.5-5.1) mmol/L Chloride 110 (98-110) mmol/L Carbon Dioxide 26 (21-31) mmol/L BUN 18 (6.0-23.0) mg/dL Creatinine 0.8 (0.6-1.5) mg/dL Est Cr Clr Drug Dosing 76.70 mL/min Estimated GFR (MDRD) > 60.0 ml/min Glucose 94 (60-110) mg/dL Calcium 8.1 L (8.8-10.8) mg/dL Magnesium (1.5-2.3) mEq/L Iron (50-170) ug/dL TIBC (273-456) ug/dL % Saturation (20-55) % Transferrin (200-400) ug/dL Ferritin (11-307) ng/mL Vitamin B12 (200-1100) PG/ML Folate (7.2-15.4) ng/mL Suinl Results Last 24 Hours: Microbiology 09/23/16 14:08 Gram Stain - Preliminary Sputum - Expectorated Sputum Culture - Preliminary Med Orders - Current: Current Medications Digoxin (Lanoxin) 125 mcg PO DAILY [facility] Last Admin: 09/24/16 08:02 Dose: 125 mcg Fexofenadine HCl (Linda) 180 mg PO DAILY PRN PRN Reason: allergies Flecainide Acetate (Tambocor) 50 mg PO BID [facility] Last Admin: 09/24/16 08:01 Dose: 50 mg Fludrocortisone Acetate (Florinef) 0.1 mg PO BIDMEALS [facility] Last Admin: 09/24/16 08:01 Dose: 0.1 mg Piperacillin Sod/Tazobactam (Sod 3.375 gm/ Sodium Chloride) 50 mls @ 100 mls/ hr IV Q6H [facility] Last Admin: 09/24/16 03:02 Dose: 100 mls/hr Sodium Chloride (Normal Saline) 1,000 mls @ 100 mls/hr IV ASDIRECTED [facility] Last Admin: 09/23/16 21:44 Dose: 100 mls/hr Levalbuterol HCl (Xopenex) 0.63 mg INH Q4H PRN PRN Reason: SHORTNESS OF BREATH Levothyroxine Sodium (Levothyroxine) 112 mcg PO ACBREAKFAST [facility] Last Admin: 09/24/16 06:36 Dose: 112 mcg Levothyroxine Sodium (Levothyroxine) 25 mcg PO ACBREAKFAST [facility] Last Admin: 09/24/16 06:36 Dose: 25 mcg Meclizine HCl (Antivert) 25 mg PO Q8H PRN PRN Reason: DIZZINESS Midodrine (Midodrine) 2.5 mg PO BID [facility] Last Admin: 09/24/16 08:01 Dose: 2.5 mg Nystatin (Nystatin Crm) 0 gm TOP BID PRN PRN Reason: rash Omeprazole (Omeprazole) 20 mg PO ACBREAKFAST [facility] Last Admin: 09/24/16 06:36 Dose: 20 mg Ondansetron HCl (Zofran) 4 mg IVPUSH Q4H PRN PRN Reason: Nausea/Vomiting Solifenacin Succinate [Vesicare] 10 MgPt Own 1 each PO DAILY [facility] Polysaccharide Iron Complex (Ferrex 150) 150 mg PO DAILY [facility] Last Admin: 09/24/16 08:01 Dose: 150 mg Sertraline HCl (Zoloft) 50 mg PO DAILY [facility] Last Admin: 09/24/16 08:01 Dose: 50 mg Sodium Chloride (Saline Flush) 10 ml FLUSH ASDIRECTED PRN PRN Reason: Keep Vein Open Sodium Chloride (Saline Flush) 2.5 ml FLUSH ASDIRECTED PRN PRN Reason: Keep Vein Open Tiotropium Campbell (Spiriva Handihaler) 18 mcg INH DAILYRT [facility] Last Admin: 09/24/16 07:03 Dose: 1 cap Discontinued Medications Albuterol/Ipratropium (Duoneb 3.0-0.5 Mg/3 Ml) 3 ml NEB ONETIME ONE Stop: 09/22/16 19:36 Last Admin: 09/22/16 19:51 Dose: 3 ml Apixaban (Eliquis) 5 mg PO BID [facility] Last Admin: 09/23/16 10:50 Dose: Not Given Apixaban (Eliquis) 5 mg PO BID [facility] Last Admin: 09/23/16 10:51 Dose: Not Given Sodium Chloride (Normal Saline) 1,000 mls @ 999 mls/hr IV STAT ONE Stop: 09/22/16 20:36 Last Admin: 09/22/16 20:20 Dose: 999 mls/hr Piperacillin Sod/Tazobactam (Sod 3.375 gm/ Sodium Chloride) 50 mls @ 100 mls/ hr IV ONETIME ONE Stop: 09/22/16 22:30 Last Admin: 09/22/16 22:25 Dose: 100 mls/hr Azithromycin 500 mg/ Sodium (Chloride) 250 mls @ 250 mls/hr IV ONETIME ONE Stop: 09/23/16 00:43 Last Admin: 09/23/16 00:17 Dose: 250 mls/hr Magnesium Sulfate 2 gm/ Premix 50 mls @ 50 mls/hr IV ONETIME ONE Stop: 09/23/16 14:04 Last Admin: 09/23/16 14:02 Dose: 50 mls/hr Iopamidol (Isovue Multipack-370 (76%)) 100 ml IVPUSH ONETIME STA Stop: 09/22/16 19:52 Last Admin: 09/22/16 20:00 Dose: 100 ml Solifenacin Succinate [Vesicare] 10 MgPt Own 10 mg PO DAILY [facility] Last Admin: 09/23/16 10:50 Dose: Not Given Tiotropium Campbell (Spiriva Handihaler) 1 mcg INH DAILY [facility] Last Admin: 09/23/16 09:33 Dose: 1 cap - Exam General: Alert, Oriented, Cooperative, No Acute Distress Neck: Supple Lungs: Normal Respiratory Effort, Rhonchi (bilateral bases and R mid lobe). No : Wheezing Cardiovascular: Regular Rate, Regular Rhythm, No Murmurs Extremities: Normal Inspection, No Pedal Edema Skin: Warm, Dry, Intact Psy/Mental Status: Alert, Normal Affect, Normal Mood - Problem List & Annotations (1) Aspiration pneumonia SNOMED Code(s): 260142673 Code(s): J69.0 - PNEUMONITIS DUE TO INHALATION OF FOOD AND VOMIT Status: Acute Current Visit: Yes Qualifiers: Laterality: bilateral (2) Hemoptysis SNOMED Code(s): 40206882 Code(s): R04.2 - HEMOPTYSIS Status: Acute Current Visit: Yes (3) Afib SNOMED Code(s): 69032396 Code(s): I48.91 - UNSPECIFIED ATRIAL FIBRILLATION Status: Chronic Current Visit: Yes (4) Anemia SNOMED Code(s): 100315014 Code(s): D64.9 - ANEMIA, UNSPECIFIED Status: Chronic Current Visit: Yes Qualifiers: Anemia type: iron deficiency Iron deficiency anemia type: inadequate dietary iron intake Qualified Code(s): D50.8 - Other iron deficiency anemias (5) Dysphagia SNOMED Code(s): 21507056, 728282821 Code(s): R13.10 - DYSPHAGIA, UNSPECIFIED Status: Chronic Current Visit: Yes Qualifiers: Dysphagia type: unspecified Qualified Code(s): R13.10 - Dysphagia, unspecified (6) Malnutrition SNOMED Code(s): 1096012 Code(s): E46 - UNSPECIFIED PROTEIN-CALORIE MALNUTRITION Status: Chronic Current Visit: Yes (7) JONNA (obstructive sleep apnea) SNOMED Code(s): 75650427 Code(s): G47.33 - OBSTRUCTIVE SLEEP APNEA (ADULT) (PEDIATRIC) Status: Chronic Current Visit: Yes (8) COPD (chronic obstructive pulmonary disease) SNOMED Code(s): 77593530 Code(s): J44.9 - CHRONIC OBSTRUCTIVE PULMONARY DISEASE, UNSPECIFIED Status : Chronic Current Visit: Yes Qualifiers: COPD type: chronic bronchitis (9) Pacemaker SNOMED Code(s): 576361613, 288124460 Code(s): Z95.0 - PRESENCE OF CARDIAC PACEMAKER Status: Chronic Current Visit: Yes (10) Hypothyroid SNOMED Code(s): 84846913 Code(s): E03.9 - HYPOTHYROIDISM, UNSPECIFIED Status: Chronic Current Visit: Yes (11) History of head or neck cancer SNOMED Code(s): 079490628 Code(s): Z85.89 - PERSONAL HISTORY OF MALIGNANT NEOPLASM OF ORGANS AND SYSTEMS Status: Chronic Current Visit: Yes (12) Hx of head and neck radiation SNOMED Code(s): 361701812 Code(s): Z92.3 - PERSONAL HISTORY OF IRRADIATION Status: Chronic Current Visit: Yes - Problem List Review Problem List Initiated/Reviewed/Updated: Yes - My Orders Last 24 Hours: My Active Orders 09/23/16 10:15 Sodium Chloride 0.9% [Normal Saline] 1,000 ml IV ASDIRECTED 09/23/16 12:03 Resuscitation Status Routine 09/24/16 08:06 MAGNESIUM [CHEM] Routine 09/24/16 09:00 Iron Polysaccharides Complex [Ferrex 150] 150 mg PO DAILY 09/25/16 05:00 BMP [BASIC METABOLIC PANEL,BMP] [CHEM] DAILY CBC WITH AUTO DIFF [HEME] DAILY 09/26/16 05:00 BMP [BASIC METABOLIC PANEL,BMP] [CHEM] DAILY CBC WITH AUTO DIFF [HEME] DAILY - Plan Plan:: This 71 year old female admitted with aspiration Pneumonia 1. Aspiration pneumonia: Continue Zosyn. BC neg x 1 day. Sputum pending, but gram stain shows gram neg rods. Encourage IS. Will monitor labs in AM. Oxygen prn 2. Anemia: Iron studies show iron deficiency anemia likely secondary to malnutrition. Hgb stable today, 8.5 asymptomatic. Continue Iron PO daily, will give Venofer 500 mg IV today. 3. Afib: Continue Anti-arrhythmics. Rate controlled. Will hold Eliquis at this time due to hemoptysis. Mg stable monitor in am. 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 Discontinue IVFs 5. Malnutrition: Supplement meals with Ensure/Boost. Monitor. 6. COPD: Continue Spiriva VTE prophylaxis: SCDs Dispo: 2-3 days
[2016-09-24] MEDS: Sodium Chloride 0.9% 1,000 ML IV SCH (08:32)
[2016-09-24] MEDS: SOLIFENACIN SUCCINATE 10 MG PO SCH (08:32)
[2016-09-24] MEDS ORDERED: Bisacodyl 5 MG Tab PO PRN (10:05)
[2016-09-24] MEDS ORDERED: SODIUM CHLORIDE 0.9% IV ONE (13:27)
[2016-09-24] MEDS ORDERED: SODIUM FERRIC GLUCONAT IV ONE (13:27)
[2016-09-24] MEDS ORDERED: SUCROSE IV ONE (13:27)
[2016-09-25] MEDS: Piperacillin/Tazobactam 3.375 GM in Sodium Chloride 0.9% 50 ML IV SCH ×2 (04:32→10:05)
[2016-09-25 05:34] LABS: CHLORIDE,CL 109 mmol/L (98-110); SODIUM,NA 142 mmol/L (136-146)
[2016-09-25] MEDS: OMEPRAZOLE 20 MG PO SCH (06:39)
[2016-09-25] MEDS: Levothyroxine 25 MCG Tab PO SCH (06:40)
[2016-09-25] MEDS: Levothyroxine 112 MCG Tab PO SCH (06:40)
[2016-09-25] MEDS: Tiotropium Inhaler 18 MCG Inhalation Powder Cap INH SCH (06:53)
[2016-09-25] MEDS: Fludrocortisone 0.1 MG Tab PO SCH (07:51)
[2016-09-25] MEDS: Digoxin 125 MCG Tab PO SCH (08:01)
[2016-09-25] MEDS: SOLIFENACIN SUCCINATE 10 MG PO SCH (08:01)
[2016-09-25] MEDS: Sertraline 50 MG Tab PO SCH (08:01)
[2016-09-25] MEDS: Midodrine 5 MG Tab PO SCH (08:02)
[2016-09-25] MEDS: Iron Polysaccharides Complex 150 MG Cap PO SCH (08:02)
[2016-09-25] MEDS: Flecainide 100 MG Tab PO SCH (08:02)
[2016-09-25] MEDS ORDERED: Magnesium Sulfate/Water 4 GM in Premix Bag 1 BAG IV ONE (08:35)
--- NOTE | 2016-09-25 11:05 | PCM.DCSUM1 ---
Discharge Summary - Hospital Course Brief History: This is a 71 year old female with a past medical history of left sided neck cancer that was treated with radiation and dissection 12 years ago, A -fib on chronic anticoagulation, Eliquis, COPD, recurrent aspiration pneumonia due to radiation treatments, pacemaker, Curtis reflex syndrome, JONNA, and hypothyroidism. She presents to the ED for an episode of coughing up blood that was red mixed in with her sputum. She reports 2 days ago, feeling weak and clumsy and just is feeling dehydrated. She reported having a fever of 101.3 at home, with some chills. She denies chest pain, palpitations or SOB. She denied abdominal pain, urinary symptoms or diarrhea. She does suffer from some constipation chronically. Her and her are from [place] and they have been traveling in a RV for the last month. Due to dysphagia and recurrent aspiration pneumonia, her community outreach specialist placed her on Clindamycin approximately 1 year ago to help prevent aspiration pneumonia. She has been told to limit meat and bread intake, which she has a hard time swallowing. Her appetite is poor and typically doesn't eat much due to dysphagia. She at this time is aiming at quality of life and doesn't want to restrict diet at this time and knows eventually she will be back to PEG tube feedings. In the ED, slight leukocytosis noted, 11,070, hgb 9.[address] of the chest revealed R upper, mid and lower lobe and L lower lobe opacities, question aspiration. Neck and abdominal CT negative for acute abnormalities. She was treated with Zosyn and 1 L bolus. She was admitted for aspiration pneumonia. - Discharge Data Discharge Date: 09/25/16 Discharge Disposition: Home, Self-Care 01 Condition: Good - Discharge Diagnosis/Problem(s) (1) Aspiration pneumonia SNOMED Code(s): 783693942 ICD Code: J69.0 - PNEUMONITIS DUE TO INHALATION OF FOOD AND VOMIT Status: Acute Current Visit: Yes Qualifiers: Laterality: bilateral (2) Hemoptysis SNOMED Code(s): 06573488 ICD Code: R04.2 - HEMOPTYSIS Status: Acute Current Visit: Yes (3) Afib SNOMED Code(s): 10053604 ICD Code: I48.91 - UNSPECIFIED ATRIAL FIBRILLATION Status: Chronic Current Visit: Yes (4) Anemia SNOMED Code(s): 527240522 ICD Code: D64.9 - ANEMIA, UNSPECIFIED Status: Chronic Current Visit: Yes Qualifiers: Anemia type: iron deficiency Iron deficiency anemia type: inadequate dietary iron intake Qualified Code(s): D50.8 - Other iron deficiency anemias (5) Dysphagia SNOMED Code(s): 50704694, 919152539 ICD Code: R13.10 - DYSPHAGIA, UNSPECIFIED Status: Chronic Current Visit: Yes Qualifiers: Dysphagia type: unspecified Qualified Code(s): R13.10 - Dysphagia, unspecified (6) Malnutrition SNOMED Code(s): 8867105 ICD Code: E46 - UNSPECIFIED PROTEIN-CALORIE MALNUTRITION Status: Chronic Current Visit: Yes (7) JONNA (obstructive sleep apnea) SNOMED Code(s): 67313150 ICD Code: G47.33 - OBSTRUCTIVE SLEEP APNEA (ADULT) (PEDIATRIC) Status: Chronic Current Visit: Yes (8) COPD (chronic obstructive pulmonary disease) SNOMED Code(s): 53134645 ICD Code: J44.9 - CHRONIC OBSTRUCTIVE PULMONARY DISEASE, UNSPECIFIED Status : Chronic Current Visit: Yes Qualifiers: COPD type: chronic bronchitis (9) Pacemaker SNOMED Code(s): 989239634, 551866280 ICD Code: Z95.0 - PRESENCE OF CARDIAC PACEMAKER Status: Chronic Current Visit: Yes (10) Hypothyroid SNOMED Code(s): 59911326 ICD Code: E03.9 - HYPOTHYROIDISM, UNSPECIFIED Status: Chronic Current Visit: Yes (11) History of head or neck cancer SNOMED Code(s): 904352198 ICD Code: Z85.89 - PERSONAL HISTORY OF MALIGNANT NEOPLASM OF ORGANS AND SYSTEMS Status: Chronic Current Visit: Yes (12) Hx of head and neck radiation SNOMED Code(s): 358781927 ICD Code: Z92.3 - PERSONAL HISTORY OF IRRADIATION Status: Chronic Current Visit: Yes - Patient Instructions Diet: Regular Diet as Tolerated Activity: As Tolerated Showering/Bathing: May Shower Notify Provider of: Fever, Increased Pain, Swelling and Redness, Drainage, Nausea and/or Vomiting - Discharge Plan Prescriptions/Med Rec: Amoxicillin/Potassium Clav [Augmentin Es-600 Suspension] 7.5 ml PO BID #125 ml Iron Polysaccharides Complex [Ferrex 150] 150 mg PO DAILY #30 cap Home Medications: Home Meds Apixaban [Eliquis] 5 mg PO BID 09/22/16 [History] Clindamycin HCl 150 mg PO DAILY 09/22/16 [History] Digoxin [Digitek] 125 mcg PO DAILY 09/22/16 [History] Esomeprazole [NexIUM] 40 mg PO ACBREAKFAST 09/22/16 [History] Fexofenadine [Linda] 180 mg PO ASDIRECTED PRN 09/22/16 [History] Flecainide Acetate 50 mg PO BID 09/22/16 [History] Fludrocortisone [Florinef] 0.1 mg PO BIDMEALS 09/22/16 [History] Levalbuterol HCl 0.63 mg IH ASDIRECTED PRN 09/22/16 [History] Levothyroxine 137 mcg PO ACBREAKFAST 09/22/16 [History] Meclizine [Antivert] 25 mg PO ASDIRECTED PRN 09/22/16 [History] Midodrine 2.5 mg PO BID 09/22/16 [History] Nystatin 15 gm TP ASDIRECTED PRN 09/22/16 [History] Sertraline [Zoloft] 50 mg PO DAILY 09/22/16 [History] Solifenacin Succinate [Vesicare] 10 mg PO DAILY 09/22/16 [History] Tiotropium [Spiriva Handihaler] 18 mcg INH DAILY 09/22/16 [History] Amoxicillin/Potassium Clav [Augmentin Es-600 Suspension] 7.5 ml PO BID #125 ml 09/25/16 [Rx] Iron Polysaccharides Complex [Ferrex 150] 150 mg PO DAILY #30 cap 09/25/16 [Rx] Patient Handouts: Amoxicillin; Clavulanic Acid tablets, Polysaccharide-Iron Complex tablets or capsules, Aspiration Pneumonia Referrals: Shen aPl MD [Physician] - 09/28/16 3:00 pm - Discharge Summary/Plan Comment DC Time >30 min.: No Discharge Summary/Plan Comment: Discharge diagnoses: Aspiration pneumonia Iron deficiency anemia secondary to malnutrition Afib on anti-coagulation of Eliquis Dysphagia secondary to radiation/dissection to neck for hx of neck ca JONNA on CPAP Baroreflex syndrome COPD pacemaker hypothyroidism Lamar was admitted and treated with Zosyn for aspiration pneumonia. She was given 1 day of IVFs for some mild dehydration. BC and sputum cultures were obtained. Her course in the hospital was uncomplicated. Sputum returned with Klebsiella pneumoniae, resistant to ampicillin. She has started feeling better, but just run down felling over all. Hemopytsis has improved and she is having more blood streaked to brown sputum. Lung sounds are improved as well. She is not requiring oxygen. VS have been stable. Iron deficiency anemia noted dueing stay which is likely due to ELiquis use and malnutrition secondary to dysphagia. She was given Venofer 500 mg IV and started on oral Iron. She will be continued on this upon discharge. She is asymptomatic at this time. For aspiration pneumonia, she will be sent on Augmentin BID suspension for another 6 days, for a total of 10 days treatment. She will then restart her daily Clindamycin dosing. She is to resume all home medications. We suggested she and her stay within the area and follow up with provider on Wednesday for labwork and follow up before they head back on their travels through [place]. She is to return to the ED or nearest clinic to her if she has concerns. - General Info Date of Service: 09/25/16 Admission Dx/Problem (Free Text: Admission Diagnosis/Problem Admission Diagnosis/Problem Aspiration Pneumonia Subjective Update: Feeling better this am. No chest pain or SOB. Would be eager for discharge today if possible Functional Status: Reports: Pain Controlled, Tolerating Diet, Ambulating, Urinating - Review of Systems General: Reports: No Symptoms. Denies: Fever Pulmonary: Reports: Cough, Sputum (brown and in am blood streaked when first waking up and taking off CPAP). Denies: Shortness of Breath Cardiovascular: Reports: No Symptoms. Denies: Chest Pain, Edema Gastrointestinal: Reports: No Symptoms. Denies: Abdominal Pain, Nausea, Vomiting Genitourinary: Reports: No Symptoms. Denies: Dysuria, Frequency, Burning Musculoskeletal: Reports: No Symptoms Skin: Reports: No Symptoms Neurological: Reports: No Symptoms Psychiatric: Reports: No Symptoms - Patient Data Vitals - Most Recent: Last Vital Signs Temp 97 F 09/25/16 04:00 Pulse 73 09/25/16 08:01 Resp 18 09/25/16 04:00 BP 175/83 H 09/25/16 04:00 Pulse Ox 92 L 09/25/16 04:00 Weight - Most Recent: 75.931 kg I&O - Last 24 hours: Intake & Output 09/24/16 09/25/16 09/25/16 22:59 06:59 14:59 Intake Total 50 300 Output Total 1550 Balance 50 -1250 Lab Results - Last 24 hrs: Laboratory Results - last 24 hr 09/25/16 09/25/16 Range/Units 05:05 05:05 WBC 8.77 (4.0-11.0) K/uL RBC 3.42 L (4.30-5.90) M/uL Hgb 8.2 L (12.0-16.0) g/dL Hct 25.9 L (36.0-46.0) % MCV 75.7 L (80.0-98.0) fL MCH 24.0 L (27.0-32.0) pg MCHC 31.7 (31.0-37.0) g/dL RDW Std Deviation 50.9 (28.0-62.0) fl RDW Coeff of Jacobo 19 H (11.0-15.0) % Plt Count 213 (150-400) K/uL MPV 8.70 (7.40-12.00) fL Neut % (Auto) 81.5 H (48.0-80.0) % Lymph % (Auto) 9.6 L (16.0-40.0) % Swisher % (Auto) 7.8 (0.0-15.0) % Eos % (Auto) 0.8 (0.0-7.0) % Baso % (Auto) 0.3 (0.0-1.5) % Neut # (Auto) 7.2 H (1.4-5.7) K/uL Lymph # (Auto) 0.8 (0.6-2.4) K/uL Swisher # (Auto) 0.7 (0.0-0.8) K/uL Eos # (Auto) 0.1 (0.0-0.7) K/uL Baso # (Auto) 0.0 (0.0-0.1) K/uL Nucleated RBC % 0.0 /100WBC Nucleated RBCs # 0 K/uL Sodium 142 (136-146) mmol/L Potassium 3.5 (3.5-5.1) mmol/L Chloride 109 (98-110) mmol/L Carbon Dioxide 25 (21-31) mmol/L BUN 11 (6.0-23.0) mg/dL Creatinine 0.8 (0.6-1.5) mg/dL Est Cr Clr Drug Dosing 76.70 mL/min Estimated GFR (MDRD) > 60.0 ml/min Glucose 101 (60-110) mg/dL Calcium 8.0 L (8.8-10.8) mg/dL Magnesium 1.4 L (1.5-2.3) mEq/L MARIMAR Results - Last 24 hrs: Microbiology 09/23/16 14:08 Gram Stain - Preliminary Sputum - Expectorated Sputum Culture - Final Klebsiella Pneumoniae Normal Respiratory Tammy Med Orders - Current: Current Medications Bisacodyl (Dulcolax) 5 mg PO DAILY PRN PRN Reason: Constipation Last Admin: 09/24/16 11:08 Dose: 5 mg Digoxin (Lanoxin) 125 mcg PO DAILY [facility] Last Admin: 09/25/16 08:01 Dose: 125 mcg Fexofenadine HCl (Linda) 180 mg PO DAILY PRN PRN Reason: allergies Flecainide Acetate (Tambocor) 50 mg PO BID [facility] Last Admin: 09/25/16 08:02 Dose: 50 mg Fludrocortisone Acetate (Florinef) 0.1 mg PO BIDMEALS [facility] Last Admin: 09/25/16 07:51 Dose: 0.1 mg Piperacillin Sod/Tazobactam (Sod 3.375 gm/ Sodium Chloride) 50 mls @ 100 mls/ hr IV Q6H [facility] Last Admin: 09/25/16 10:05 Dose: 100 mls/hr Levalbuterol HCl (Xopenex) 0.63 mg INH Q4H PRN PRN Reason: SHORTNESS OF BREATH Levothyroxine Sodium (Levothyroxine) 112 mcg PO ACBREAKFAST [facility] Last Admin: 09/25/16 06:40 Dose: 112 mcg Levothyroxine Sodium (Levothyroxine) 25 mcg PO ACBREAKFAST [facility] Last Admin: 09/25/16 06:40 Dose: 25 mcg Meclizine HCl (Antivert) 25 mg PO Q8H PRN PRN Reason: DIZZINESS Midodrine (Midodrine) 2.5 mg PO BID@0900,1600 [facility] Last Admin: 09/25/16 08:02 Dose: 2.5 mg Nystatin (Nystatin Crm) 0 gm TOP BID PRN PRN Reason: rash Omeprazole (Omeprazole) 20 mg PO ACBREAKFAST [facility] Last Admin: 09/25/16 06:39 Dose: 20 mg Ondansetron HCl (Zofran) 4 mg IVPUSH Q4H PRN PRN Reason: Nausea/Vomiting Solifenacin Succinate [Vesicare] 10 MgPt Own 1 each PO DAILY [facility] Last Admin: 09/25/16 08:01 Dose: 1 each Polysaccharide Iron Complex (Ferrex 150) 150 mg PO DAILY [facility] Last Admin: 09/25/16 08:02 Dose: 150 mg Sertraline HCl (Zoloft) 50 mg PO DAILY [facility] Last Admin: 09/25/16 08:01 Dose: 50 mg Sodium Chloride (Saline Flush) 10 ml FLUSH ASDIRECTED PRN PRN Reason: Keep Vein Open Sodium Chloride (Saline Flush) 2.5 ml FLUSH ASDIRECTED PRN PRN Reason: Keep Vein Open Tiotropium [place] (Spiriva Handihaler) 18 mcg INH DAILYRT [facility] Last Admin: 09/25/16 06:53 Dose: 1 cap Discontinued Medications Albuterol/Ipratropium (Duoneb 3.0-0.5 Mg/3 Ml) 3 ml NEB ONETIME ONE Stop: 09/22/16 19:36 Last Admin: 09/22/16 19:51 Dose: 3 ml Apixaban (Eliquis) 5 mg PO BID [facility] Last Admin: 09/23/16 10:50 Dose: Not Given Apixaban (Eliquis) 5 mg PO BID [facility] Last Admin: 09/23/16 10:51 Dose: Not Given Sodium Chloride (Normal Saline) 1,000 mls @ 999 mls/hr IV STAT ONE Stop: 09/22/16 20:36 Last Admin: 09/22/16 20:20 Dose: 999 mls/hr Piperacillin Sod/Tazobactam (Sod 3.375 gm/ Sodium Chloride) 50 mls @ 100 mls/ hr IV ONETIME ONE Stop: 09/22/16 22:30 Last Admin: 09/22/16 22:25 Dose: 100 mls/hr Azithromycin 500 mg/ Sodium (Chloride) 250 mls @ 250 mls/hr IV ONETIME ONE Stop: 09/23/16 00:43 Last Admin: 09/23/16 00:17 Dose: 250 mls/hr Sodium Chloride (Normal Saline) 1,000 mls @ 100 mls/hr IV ASDIRECTED [facility] Last Infusion: 09/24/16 21:00 Dose: Infused Magnesium Sulfate 2 gm/ Premix 50 mls @ 50 mls/hr IV ONETIME ONE Stop: 09/23/16 14:04 Last Admin: 09/23/16 14:02 Dose: 50 mls/hr Sodium Ferric Gluconat/Sucrose (625 mg/ Sodium Chloride) 300 mls @ 60 mls/hr IV ONETIME ONE Stop: 09/24/16 18:26 Last Admin: 09/24/16 13:58 Dose: 60 mls/hr Magnesium Sulfate 4 gm/ Premix 100 mls @ 50 mls/hr IV ONETIME ONE Stop: 09/25/16 10:34 Last Admin: 09/25/16 08:52 Dose: 50 mls/hr Iopamidol (Isovue Multipack-370 (76%)) 100 ml IVPUSH ONETIME STA Stop: 09/22/16 19:52 Last Admin: 09/22/16 20:00 Dose: 100 ml Midodrine (Midodrine) 2.5 mg PO BID [facility] Last Admin: 09/24/16 08:01 Dose: 2.5 mg Solifenacin Succinate [Vesicare] 10 MgPt Own 10 mg PO DAILY [facility] Last Admin: 09/23/16 10:50 Dose: Not Given Tiotropium [place] (Spiriva Handihaler) 1 mcg INH DAILY [facility] Last Admin: 09/23/16 09:33 Dose: 1 cap - Exam General: Reports: Alert, Oriented, Cooperative, No Acute Distress Lungs: Reports: Normal Respiratory Effort, Rhonchi Cardiovascular: Reports: Regular Rate, Regular Rhythm GI/Abdominal Exam: Normal Bowel Sounds, Soft, Non-Tender, No Organomegaly, No Distention, No Abnormal Bruit, No Mass, Pelvis Stable Extremities: Normal Inspection, Normal Range of Motion, Non-Tender, No Pedal Edema, Normal Capillary Refill Skin: Reports: Warm, Dry, Intact Neurological: Reports: No New Focal Deficit Psy/Mental Status: Reports: Alert, Normal Affect, Normal Mood *Q Meaningful Use (DIS) - VTE *Q VTE Criteria *Q: - Stroke *Q Stroke Criteria *Q: - AMI *Q AMI Criteria *Q:
[2016-09-25 16:22] VITALS: BP 114/58
== END 2016-09-25 12:30 | disposition home or self-care (01) | DRG 178 ==
LOC: MW.ED 19:20 → MW.MS 22:10
PROVIDERS: ADMIT Internal Medicine; ATTEND Internal Medicine
DX: J69.0 Pneumonitis due to inhalation of food and vomit (principal); R04.2 Hemoptysis; E46 Unspecified protein-calorie malnutrition; J18.9 Pneumonia, unspecified organism; B96.1 Klebsiella pneumoniae [K. pneumoniae] as the cause of diseases classified elsewhere; E86.0 Dehydration; F64.9 Gender identity disorder, unspecified; R13.10 Dysphagia, unspecified; G47.33 Obstructive sleep apnea (adult) (pediatric); I48.91 Unspecified atrial fibrillation; E03.9 Hypothyroidism, unspecified; D50.8 Other iron deficiency anemias; J44.9 Chronic obstructive pulmonary disease, unspecified; Z92.3 Personal history of irradiation; Z95.0 Presence of cardiac pacemaker; G47.30 Sleep apnea, unspecified; Z79.899 Other long term (current) drug therapy; Z87.891 Personal history of nicotine dependence; Z85.89 Personal history of malignant neoplasm of other organs and systems; Z88.8 Allergy status to other drugs, medicaments and biological substances
CPT/HCPCS: 36415; 70491; 71010; 71260; 74177; 80053; 80162; 83605; 84484; 85025; 85610; 86850; 86900; 86901; 87040 ×2; 93005; 94664; 96361; 99285; J7040; Q9967; 80048; 82607; 82728; 82746; 83550; 83735; 85045; 87070; 87077; 87186; 87205; 94640; 96360; 96374; 99291; A9270-GY; J0456; J2543; J2916; J3475; J7050